=== PATIENT | male | born 2000 | race Two or more races ===

== ENCOUNTER → 2020-07-06 08:32 | Outpatient (BNVA) | payer OTHER, SELFPAY | PROVIDERS: PCP Family Medicine; Referring Provider Family Medicine; Visit Provider Nurse Practitioner Family | DX: Z76.89 Persons encountering health services in other specified circumstances (principal) ==

== ENCOUNTER 2022-07-26 04:31 | Emergency (ER) | payer OTHER, SELFPAY ==
--- NOTE | 2022-07-26 | ECG_ITS ---
Test Reason : CHEST PAIN Blood Pressure : / mmHG Vent. Rate : 077 BPM Atrial Rate : 077 BPM P-R Int : 150 ms QRS Dur : 084 ms QT Int : 358 ms P-R-T Axes : 033 -22 -19 degrees QTc Int : 405 ms Normal sinus rhythm ST elevation, consider early repolarization, pericarditis, or injury Abnormal ECG When compared with ECG of 19-APR-2010 08:53, PREVIOUS ECG IS PRESENT Referred By: Generic ED Physician Electronically Signed By:LEELA DONATO MD
--- NOTE | ~2022-07-26 | XR_ITS ---
EXAMINATION: XR CHEST CLINICAL INFORMATION: Chest pain COMPARISON: 04/14/2019 TECHNIQUE: Frontal view of the chest was obtained. FINDINGS: No significant abnormality is noted involving the heart, lungs, mediastinum, bony thorax or soft tissues. XR/XR chest 1V IMPRESSION: Unremarkable examination.
[2022-07-26 04:38] VITALS: BP 149/105; PULSE 82; RESP 18; TEMP 37.1; O2SAT 98; BMI 48.2
[2022-07-26 05:03] LABS: MANUAL DIFF FLAG NO
[2022-07-26 05:04] LABS: Basophils Percent Auto 0.2 % (0-2); Eosinophils Absolute Auto 0.2 X10*3/uL (0.0-0.4); Eosinophils Percent Auto 2.5 % (0-4); Hematocrit 42.3 % (42.0-52.0); Hemoglobin 13.7 g/dl (14.0-18.0); Imm Gran Abs Auto 0.04 X10*3/uL (0.00-0.03); Imm Gran Pct Auto 0.4 % (0.0-0.4); Lymphocytes Absolute Auto 2.3 X10*3/uL (1.2-4.9); Lymphocytes Percent Auto 23.7 % (20-40); Mean Corpuscular HGB Conc 32.4 g/dl (31.0-36.0); Mean Corpuscular Hemoglobin 26.8 pg (27.0-33.0); Mean Corpuscular Volume 82.6 fL (80.0-98.0); Mean Platelet Volume 9.4 fL (9.4-12.4); Monocytes Absolute Auto 1.7 X10*3/uL (0.1-1.2); Monocytes Percent Auto 17.3 % (2-11); Neutrophils Absolute Auto 5.5 x10*3/uL (2.0-8.3); Neutrophils Percent Auto 55.9 % (45-73); Platelet Count 266 X10*3/uL (160-400); Red Blood Count 5.12 X10*6/uL (4.60-5.80); Red Cell Distribution Width 13.1 % (11.0-16.0); SCAN SMEAR FLAG 1; White Blood Count 9.8 X10*3/uL (4.8-10.8)
[2022-07-26 05:23] LABS: Alanine Aminotransferase 39 U/L (0-40); Albumin Level 3.7 g/dL (3.5-5.0); Alkaline Phosphatase 99 U/L (39-117); Anion Gap 12 (12-20); Aspartate Amino Transferase 42 U/L (5-37); Bilirubin Total 0.7 mg/dL (0.0-1.0); Blood Urea Nitrogen 9 mg/dL (9-16); Calcium 8.4 mg/dL (8.4-10.2); Carbon Dioxide 28 mmol/L (22-29); Chloride 99 mmol/L (96-108); Estimated Glomerular Filt Rate > 60; Glucose Random 116 mg/dL (60-115); Potassium 3.7 mmol/L (3.3-5.1); Sodium 135 mmol/L (135-145); Total Protein 6.7 g/dL (6.5-8.0)
[2022-07-26 05:34] LABS: Troponin-I High Sensitivity 2524.9 ng/L (<3.5-35.0)
[2022-07-26 05:40] LABS: Influenza A PCR NEGATIVE (Negative); Influenza B PCR NEGATIVE (Negative); Resp Syncy Virus RNA Qual PCR NEGATIVE (Negative); SARS COV2 PCR INHOUSE NEGATIVE (Negative)
--- NOTE | 2022-07-26 05:48 | MHC.EDTECH ---
pt placed on shelter monitor.
[2022-07-26 05:49] VITALS: BP 142/100; PULSE 82; RESP 14; O2SAT 97
[2022-07-26 06:13] LABS: INTERNATIONAL NORM RATIO 1.1 (0.9-1.1); Prothrombin Time 12.8 SEC (10.0-13.1)
--- NOTE | 2022-07-26 06:13 | ED.CHESTPAIN ---
HPI - Chest Pain General Chief Complaint: Chest Pain Stated Complaint: chest pain, SOB Time Seen by Provider: 07/26/22 05:47 Source: patient and family ( Mother) Limitations: no limitations History of Present Illness HPI narrative: 22-year-old male brought in for evaluation of chest pain. Patient started to have chest pain 24 hours ago woke him up from sleep yesterday morning, patient was seen at walk-in clinic yesterday, mid chest pain constant since yesterday no relieving factor get worse if he leaned forward, not affected by breathing, no radiation of the pain, slight shortness of breath but no coughing, patient had some viral symptoms for about half a day then now he feels better. No family history of heart disease in young age, no history of young in the family. No recent travel, no recent prolonged immobilization, no lower extremity swelling or tenderness. Related Data Previous Rx's Medication Instructions Recorded citalopram 10 mg tablet 10 mg PO QAM 30 days #30 tabs 06/05/22 doxepin 25 mg capsule 25 mg PO BEDTIME 30 days #30 caps 06/05/22 ciprofloxacin HCl 250 mg tablet 250 mg PO BID #10 tabs 07/25/22 (Cipro) Allergies Allergy/AdvReac Type Severity Reaction Status Date / Time No Known Allergies Allergy Verified 07/25/22 11:58 Review of Systems Review of Systems: All other systems are reviewed and are negative Constitutional: Reports as per HPI and Reports no additional constitutional complaints Eyes: Reports as per HPI and Reports no additional eye complaints Reports system reviewed and no additional complaints, except as documented Cardiovascular: Reports as per HPI and Reports no additional cardiovascular complaints Respiratory: Reports as per HPI and Reports no additional respiratory complaints Gastrointestinal: Reports as per HPI and Reports no additional gastrointestinal complaints Genitourinary: Reports no additional female genitourinary complaints Musculoskeletal: Reports no additional musculoskeletal complaints Skin/Breast: Reports system reviewed and no additional complaints, except as docu Psychiatric: Reports no additional psychiatric complaints Endocrine: Reports no additional endocrine complaints Hematologic/Lymphatic: Reports no additional hematologic/lymphatic complaints Allergic/Immunologic: Reports no additional allergic/immunologic complaints Reports system reviewed and no additional complaints, except as documented and Reports Abnormal speech present PMFSH Past Medical History Medical History Anxiety Attention deficit hyperactivity disorder (ADHD) Excessive cerumen in both ear canals Morbid obesity with BMI of 45.0-49.9, adult Surgical History No pertinent past surgical history Family History Family History Father Diabetes mellitus Mother Diabetes mellitus Other Mental health disorder Social History Social History Housing: House Alcohol intake: never Patient Tobacco Use Status: Never used Tobacco e-Cigarette/Vaping Use: Never Used Second Hand Smoke Exposure: No Advance Directives: No Advance Directives Information Provided: Yes service: No Current occupational status: disabled Cognitive needs: No Hearing needs: No Vision needs: Yes (glasses) Physical Exam Vital Signs: Vital Signs: Last Vital Signs Temp 98.7 F 07/26/22 04:38 Pulse 82 07/26/22 05:49 Resp 14 07/26/22 05:49 BP 142/100 H 07/26/22 05:49 Pulse Ox 97 07/26/22 05:49 O2 Del Method 07/26/22 05:49 BMI result Body Mass Index 48.2 vital signs have been reviewed as appeared to be correct. Blood pressure normal. Heart rate normal. Respiration rate normal. Temperature normal. Oxygen saturation normal. Appearance: Alert. Oriented X3. No acute distress. Head: Normal external exam. Normocephalic. Atraumatic. No Sandoval signs noted. No raccoon eyes noted Eyes: PERRLA. EOMI. Conjunctiva and sclera normal. Eyelids normal. ENT: TM's Normal. Pharynx normal. Uvula midline. Moist mucous membranes. No trismus noted. No drooling noted. No muffled voice noted. Neck: Normal inspection. Neck supple. FROM. No adenopathy. Thyroid Normal. No meningeal signs. No neck mass noted. CVS: Normal heart rate and rhythm. Heart sound normal. No murmurs noted. Pulses normal throughout. Respiratory: No respiratory distress. Painless inspiration. Breath sounds normal. No wheezes/rales/rhonchi noted. Chest nontender. No accessory muscle usage noted or decreased air movement noted. Abdomen: Soft and nontender. Bowel sounds normal in all 4 quadrants. No distention noted. No organomegaly noted. No visible injury noted. Back: No CVA tenderness. Full range of motion noted. Skin: Skin warm and dry. Normal skin color. Normal skin turgor. No rashes/lesions/lacerations noted. Extremities: No lower extremity edema. Extremities exhibit normal range of motion. Extremities nontender. Neuro: Oriented X 3. Cranial nerve exam: II-XII are grossly intact No motor deficit. No sensory deficit. Reflexes normal. Course Course Course Narrative: 24 hour constant chest pain, EKG/labs /history is more consistent with myopericarditis. The case discussed with Dr. Ryan who recommended transfer to [facility], anti inflammatory medication, pain control. The case was discussed with Dr. Avalos at [facility] who will accept the patient to [facility] for further workup. Medical Decision Making Differential Diagnosis Differential Diagnoses: The differential diagnosis associated with the presentation includes ( Acute [place], myopericarditis, pneumonia, pneumothorax, pleural effusion.) Consult Healthcare Provider Management of the patient was discussed with: Flame Planer ( Dr. Ryan delinquency prevention officer. And Dr. Avalos delinquency prevention officer at [facility].) Lab Data MDM Lab Attestation statement: I reviewed the patient's lab results. Result Diagrams: 07/26/22 04:59 07/26/22 04:59 Labs: Lab Results 07/26/22 07/26/22 07/26/22 Range/Units 04:59 04:59 04:59 WBC 9.8 (4.8-10.8) X10*3/uL RBC 5.12 (4.60-5.80) X10*6/uL Hgb 13.7 L (14.0-18.0) g/dl Hct 42.3 (42.0-52.0) % MCV 82.6 (80.0-98.0) fL MCH 26.8 L (27.0-33.0) pg MCHC 32.4 (31.0-36.0) g/dl RDW 13.1 (11.0-16.0) % Plt Count 266 (160-400) X10*3/uL MPV 9.4 (9.4-12.4) fL Immature Gran % (Auto) 0.4 (0.0-0.4) % Neut % (Auto) 55.9 (45-73) % Lymph % (Auto) 23.7 (20-40) % Harris % (Auto) 17.3 H (2-11) % Eos % (Auto) 2.5 (0-4) % Baso % (Auto) 0.2 (0-2) % Lymph # (Auto) 2.3 (1.2-4.9) X10*3/uL Harris # (Auto) 1.7 H (0.1-1.2) X10*3/uL Eos # (Auto) 0.2 (0.0-0.4) X10*3/uL Baso # (Auto) 0.0 (0.0-0.2) X10*3/uL Abs Immat Gran (auto) 0.04 H (0.00-0.03) X10*3/uL Absolute Neuts (auto) 5.5 (2.0-8.3) x10*3/uL Absolute Nucleated RBC 0.000 (0.0-0.012) X10*3/uL Nucleated RBC % (auto) 0.0 (0.0-0.2) /100WBC PT (10.0-13.1) SEC INR (0.9-1.1) APTT (26.0-36.4) SEC D-Dimer High Sensitivty NG/ML Sodium 135 (135-145) mmol/L Potassium 3.7 (3.3-5.1) mmol/L Chloride 99 (96-108) mmol/L Carbon Dioxide 28 (22-29) mmol/L Anion Gap 12 (12-20) BUN 9 (9-16) mg/dL Creatinine 0.90 (0.5-1.4) mg/dL Estim Creat Clear Calc 185.0 Estimated GFR > 60 Random Glucose 116 H (60-115) mg/dL Calcium 8.4 (8.4-10.2) mg/dL Total Bilirubin 0.7 (0.0-1.0) mg/dL AST 42 H (5-37) U/L ALT 39 (0-40) U/L Alkaline Phosphatase 99 (39-117) U/L Troponin I High Sens 2524.9 H* (<3.5-35.0) ng/L Total Protein 6.7 (6.5-8.0) g/dL Albumin 3.7 (3.5-5.0) g/dL Influenza Type A (PCR) (Negative) Influenza Type B (PCR) (Negative) RSV RNA Qual (PCR) (Negative) SARS-CoV-2 RNA (RT-PCR) (Negative) 07/26/22 07/26/22 07/26/22 Range/Units 04:59 05:57 05:57 WBC (4.8-10.8) X10*3/uL RBC (4.60-5.80) X10*6/uL Hgb (14.0-18.0) g/dl Hct (42.0-52.0) % MCV (80.0-98.0) fL MCH (27.0-33.0) pg MCHC (31.0-36.0) g/dl RDW (11.0-16.0) % Plt Count (160-400) X10*3/uL MPV (9.4-12.4) fL Immature Gran % (Auto) (0.0-0.4) % Neut % (Auto) (45-73) % Lymph % (Auto) (20-40) % Harris % (Auto) (2-11) % Eos % (Auto) (0-4) % Baso % (Auto) (0-2) % Lymph # (Auto) (1.2-4.9) X10*3/uL Harris # (Auto) (0.1-1.2) X10*3/uL Eos # (Auto) (0.0-0.4) X10*3/uL Baso # (Auto) (0.0-0.2) X10*3/uL Abs Immat Gran (auto) (0.00-0.03) X10*3/uL Absolute Neuts (auto) (2.0-8.3) x10*3/uL Absolute Nucleated RBC (0.0-0.012) X10*3/uL Nucleated RBC % (auto) (0.0-0.2) /100WBC PT 12.8 (10.0-13.1) SEC INR 1.1 (0.9-1.1) APTT 33.2 (26.0-36.4) SEC D-Dimer High Sensitivty 263 NG/ML Sodium (135-145) mmol/L Potassium (3.3-5.1) mmol/L Chloride (96-108) mmol/L Carbon Dioxide (22-29) mmol/L Anion Gap (12-20) BUN (9-16) mg/dL Creatinine (0.5-1.4) mg/dL Estim Creat Clear Calc Estimated GFR Random Glucose (60-115) mg/dL Calcium (8.4-10.2) mg/dL Total Bilirubin (0.0-1.0) mg/dL AST (5-37) U/L ALT (0-40) U/L Alkaline Phosphatase (39-117) U/L Troponin I High Sens > 3600.0 H* (<3.5-35.0) ng/L Total Protein (6.5-8.0) g/dL Albumin (3.5-5.0) g/dL Influenza Type A (PCR) NEGATIVE (Negative) Influenza Type B (PCR) NEGATIVE (Negative) RSV RNA Qual (PCR) NEGATIVE (Negative) SARS-CoV-2 RNA (RT-PCR) NEGATIVE (Negative) Independent Interpretation I performed an independent interpretation of an: EKG ( Normal sinus rhythm at 77 beats per minute, left axis deviation, normal intervals, diffuse ST elevation likely pericarditis.) and Plain X-Ray ( No acute intrathoracic pathology.) Radiology Impression Discussion of test interpretation with radiology: I have reviewed the radiologist's reading. Critical Care Time Critical Care Time Critical Care Time: Yes Total Critical Care Time: 60 Attestation: I spent 60 minutes providing critical care service to the patient, this including time spent at the bedside to evaluate the patient, reassess the patient, monitoring vital signs, review labs, and radiographic studies, counseling the patient/family, discussing the case with consultants, disposition the patient. Discharge Plan Discharge Clinical Impression: Acute myopericarditis Patient Disposition: [facility] Transfer Details: to cardiac telemetry floor. Prescriptions: No Action citalopram 10 mg tablet 10 mg PO QAM 30 Days Qty: 30 3RF doxepin 25 mg capsule 25 mg PO BEDTIME 30 Days Qty: 30 3RF ciprofloxacin HCl [Cipro] 250 mg tablet 250 mg PO BID Qty: 10 0RF
--- NOTE | 2022-07-26 06:14 | MHC.EDTECH ---
call out to english professor @[phone] not accepted to [facility] call out to [facility] transfer line @[phone]
[2022-07-26 06:15] LABS: D Dimer High Sensitivity 263 NG/ML; Partial Thromboplastin Time 33.2 SEC (26.0-36.4)
[2022-07-26 06:25] LABS: Troponin-I High Sensitivity > 3600.0 ng/L (<3.5-35.0)
--- NOTE | 2022-07-26 06:41 | MHC.EDTECH ---
Call received from Judy from [facility] Transfer line @[phone] with an update Patient will be admitted to the intercare medical floor Accepting [facility] will call back when a bed is available
[2022-07-26 06:53] VITALS: RESP 12
[2022-07-26] MEDS: Ibuprofen 800 MG TABLET PO (06:53)
[2022-07-26] MEDS: Morphine Sulfate 4 MG/ML CARTRIDGE IVPUSH (06:53)
[2022-07-26 07:27] VITALS: BP 130/89; PULSE 73; RESP 13; TEMP 36.8; O2SAT 99
--- NOTE | 2022-07-26 08:01 | MHC.EDTECH ---
@[phone] called [facility] transfer line to check on the status of the room search. Kim answers and notifies me that he got a room in [facility] 5. Cardiac Intracare room 7.
--- NOTE | 2022-07-26 08:08 | MHC.EDTECH ---
@0807 called [facility]. Told them we need an ambulance to transfer Rm 8 to [facility] [place] 5 cardiac intracare room 7. Gave name, , reason for transfer and insurance information. They said their ALS truck could be here within the hour.
--- NOTE | 2022-07-26 08:17 | PC.NURSE ---
pt denies any pain, awaiting transfer to [facility]
--- NOTE | 2022-07-26 08:58 | PC.NURSE ---
call placed to brendan telles on [facility] asked to call [phone] in 5 min
== END 2022-07-26 08:56 | disposition short-term general hospital (02) ==
PROVIDERS: Emergency Provider Emergency Medicine; PCP Internal Medicine
DX: I31.9 Disease of pericardium, unspecified (principal); R07.89 Other chest pain; R06.02 Shortness of breath; Z20.822 Contact with and (suspected) exposure to COVID-19; Z79.899 Other long term (current) drug therapy
CPT/HCPCS: 0241U; 36415; 71045; 80053; 84484; 85025; 85379; 85610; 85730; 93005; 96374; 99285; J2270

== ENCOUNTER 2023-05-17 15:01 | Outpatient (AMB) | payer OTHER, SELFPAY ==
[2023-05-17 15:03] VITALS: BP 130/82; PULSE 97; O2SAT 96; BMI 45.9
--- NOTE | 2023-05-17 15:03 | A.OFFPC_ITS ---
Vital Signs 3 05/17/23 15:03 Height 5 ft 9 in Weight 311 lb 0.6 oz BMI 45.9 BP 130/82 Blood Pressure Location Lt brachial Position Sitting Pulse 97 Pulse Source Pulse Oximeter Temp Source Skin Pulse Oximetry (%) 96 Oxygen Delivery Method Room Air Intake Visit Reasons: Physical Intake Note: Patient is here today for a physical. Propeller Engineer Required: No Allergies No Known Allergies Allergy (Verified 05/17/23 15:15) Medication List - Last Reconciled 05/17/23 by PARAMJIT Serra No Known Home Meds Tobacco use date assessed: 05/17/23 Dental Screening Dental Screen Date: 05/17/23 Did you have a dental visit in the last 12 months?: No Did you have a dental problem in the last 6 months where you did not have access to dental care?: No HPI Physical 2 HPI0 Details Patient is a 22-year-old male who presents today for physical exam. Patient of Dr. Thompson. Medical history significant for ADHD-he has referral to see Psychiatry-will follow-up on this, anxiety, depression, morbid obesity, insomnia, history of myocarditis - was seen by [facility] cardiology-will call for a follow-up appointment. Patient reports that he finished his doxepin and citalopram and he never called for refills, now he is requesting refills. Reports eye exam up-to-date. Will call for dental exam. He declined tetanus vaccine. In addition, patient reports right neck lumps on and off for the past 1 year now, reports current lumps came out about 4 days that are tender, reports this issue for the past 1 year. No shortness of breath or chest pain. [facility] Medical History (Updated 05/17/23 @ 17:30 by PARAMJIT Serra) Gastroenteritis Myocarditis Excessive cerumen in both ear canals Morbid obesity with BMI of 45.0-49.9, adult Anxiety Attention deficit hyperactivity disorder (ADHD) Surgical History No pertinent past surgical history Family History Father Diabetes mellitus Mother Diabetes mellitus Other Mental health disorder Social History Housing: House Alcohol intake: never Patient Tobacco Use Status: Never used Tobacco e-Cigarette/Vaping Use: Never Used Second Hand Smoke Exposure: No service: No Current occupational status: disabled Cognitive needs: No Hearing needs: No Vision needs: Yes (glasses) Questionnaire PHQ-9 Over the last 2 weeks, how often have you been bothered by any of the following problems? 1. Little interest or pleasure in doing things: not at all 2. Feeling down, depressed, or hopeless: several days 3. Trouble falling or staying asleep, or sleeping too much: not at all 4. Feeling tired or having little energy: not at all 5. Poor appetite or overeating: not at all 6. Feeling bad about yourself - or that you are a failure or have let yourself or your family down: not at all 7. Trouble concentrating on things, such as reading the newspaper or watching television: not at all 8. Moving or speaking so slowly that other people could have noticed. Or the opposite - being so fidgety or restless that you have been moving around a lot more than usual: not at all 9. Thoughts that you would be better off or of hurting yourself in some way: not at all Total score: 1 Depression Screening Interpretation: Positive (controlled on Rx) Depression Screening Done: Yes 62128 - PHQ-9 Billing: Yes Source: Developed by Drs. Pj Mesa, Bertha Robin, Joselo Galindo and colleagues, with an educational morteza from [employer]. Thrive Questionnaire Date Thrive assessed: 08/15/22 I am a: Patient What is your living situation today?: I have a steady place to live Within the past 12 months, did the food you bought not last and you didn't have the money to get more?: Never true Within the past 12 months, did you worry whether your food would run out before you got money to buy more?: Never true Currently or been in a relationship where the following occur: no concerns reported AUDIT C Alcohol Use Questionnaire (AUDIT-C) 1. How often do you have a drink containing alcohol?: Never 3. How often do you have six or more drinks on one occasion?: Never Total Score: 0 Score Reviewed/Action Taken: No BLAYNE-7 AMB Questionnaire BLAYNE-7 Date BLAYNE - 7 assessed: 05/17/23 Feeling nervous, anxious, or on edge: 3 = Nearly every day Not being able to stop or control worryin = Nearly every day Worrying too much about different things: 3 = Nearly every day Trouble relaxin = Several days Being so restless that it is hard to sit still: 3 = Nearly every day Becoming easily annoyed or irritable: 1 = Several days Feeling afraid as if something awful might happen: 0 = Not at all Total BLAYNE-7 score (0-4 normal; 5-9 mild; 10-14 moderate; 15-21 severe): 14 Source: Developed by Drs. Pj Mesa, Bertha Robin, Joselo Galindo and colleagues, with an educational morteza from [employer]. BLAYNE-7 Assessment Billing BLAYNE-7 Assessment Tool: BLAYNE-7 Assessment 47481 Review of Systems Const Denies body aches, Denies chills, Denies fever(s) and Denies headache(s) Eyes Denies change in vision ENT Denies dizziness, Denies otalgia, Denies headache(s), Denies nasal discharge, Denies sinus pain and Denies sore throat Card Denies chest pain, Denies edema, Denies lightheadedness and Denies dyspnea Resp Denies cough, Denies dyspnea and Denies wheezing GI Denies abdominal pain, Denies constipation, Denies diarrhea, Denies nausea and Denies vomiting Denies dysuria Musc Denies myalgias Skin/Breast Reports as per HPI and Denies rash Neuro Denies dizziness and Denies headache(s) Aller/Immun Denies wheezing Physical exam (Primary Care) Vital Signs: Last Vital Signs Pulse 97 05/17/23 15:03 BP 130/82 05/17/23 15:03 Pulse Ox 96 05/17/23 15:03 Oxygen Delivery Method Room Air 05/17/23 15:03 BMI result Body Mass Index 45.9 Tobacco/Smoking Status: Tobacco use Status Tobacco use date assessed 05/17/23 05/17/23 15:04 Patient Tobacco Use Status Never used Tobacco 05/17/23 15:04 e-Cigarette/Vaping Use Never Used 05/17/23 15:04 PHQ-9: PHQ-9 Score PHQ-9: Total score 1 05/17/23 15:09 Depression Screening Interpretation: Positive (controlled on Rx) Thrive Assessment: Date of Thrive Assessment Date Thrive assessed 08/15/22 05/17/23 15:04 Currently or been in a relationship where the following occur: no concerns reported Const General: cooperative and no acute distress Orientation/consciousness: patient oriented x3 HENMT Head: Yes normocephalic and Yes atraumatic Ears: TM's normal bilaterally Face and sinus: Yes sinuses nontender Mouth: oropharynx normal and moist mucous membranes Throat: Yes posterior oropharynx normal Eyes General: appearance normal, both eyes and all related structures Pupils: Equal, round and reactive pupils present EOM: EOMs intact bilaterally Neck Neck: Yes normal visual inspection, Yes full ROM and Yes no lymphadenopathy Thyroid: Thyroid normal Resp Effort & Inspection: normal respiratory effort and able to speak in complete sentences Auscultation: clear to auscultation bilaterally, no crackles, no rales, no rhonchi and no wheezes Cardio Rate: regular rate Rhythm: regular rhythm Heart sounds: S1 normal heart sound present, S2 normal heart sound present and no murmurs GI Palpation (GI): Soft to palpation, not firm, nontender, no guarding, not rigid and no hepatosplenomegaly Auscultation: normal bowel sounds General: No CVA tenderness Back/Spine/Pelvis Back: No CVA tenderness Skin General skin exam: no rashes or lesions noted Full body images: 2 1. Right lateral neck 2 tender lumps about 1 cm each, skin is intact, no signs of infection noted Neuro General: patient oriented x3 Cranial nerves: Yes Equal, round and reactive pupils present Gait exam (Neuro): Normal gait present Extrem General: Yes full ROM and No edema Office Procedures Flu Questionnaire Does the patient have a severe egg allergy?: No Does the patient have severe life threatening allergies?: No Does the patient have a fever or illness today?: No Has the patient ever had Guillain-Pinetop Syndrome?: No Has the patient ever had any past reaction to a flu shot?: No Immunizations flu vacc [id number] 6mos up(PF) 60 mcg(15 mcgx4)/0.5 mL IM syringe Performing Provider: PARAMJIT Serra Performing Location: [facility] Adult Primary [facility] Administered by: FILIPE Montoya on 05/17/23 15:17 2 Dose Route Admin Location Dispensed Lot Number Expiration Date NDC Java Flex Developer 0.5 mL IM Left Deltoid 0.5 mL [id number] 01/27/24 33815-313-55 [employer] 2 VIS Given Date VIS Provided VIS Publication Date 05/17/23 Single Vaccine 21 Eligibility Eligibility Date Funding Source Not [facility] Eligible 05/17/23 Private Assessment and Plan Assessment & Plan (1) Skin lumps: Code(s): R22.9 - Localized swelling, mass and lump, unspecified Plan: Right lateral neck 2 tender lumps about 1 cm each, skin is intact, no signs of infection noted Will obtain ultrasound (2) Myocarditis: Code(s): I51.4 - Myocarditis, unspecified Qualifiers: Myocarditis type: infective Infective myocarditis organism: viral C hronicity: acute Qualified Code(s): I40.0 - Infective myocarditis Plan: Patient was seen by [facility] cardiology, last time he saw Cardiology in winter 2022, he reports that cardiology did not give him follow-up appointment, encouraged patient to call cardiology for a follow-up appointment (3) Insomnia: Code(s): G47.00 - Insomnia, unspecified Qualifiers: Insomnia type: unspecified Qualified Code(s): G47.00 - Insomnia, unspecified Plan: Reinforced sleep hygiene Refill sent on doxepin 25 mg at bedtime (4) Depression: Code(s): F32.A - Depression, unspecified Qualifiers: Depression Type: other depression Qualified Code(s): F32.89 - Other specified depressive episodes Plan: Counseling referral Refill sent on citalopram Denies SI (5) Morbid obesity with BMI of 45.0-49.9, adult: Code(s): E66.01 - Morbid (severe) obesity due to excess calories; Z68.42 - Body mass index [BMI] 45.0-49.9, adult Plan: Educated about healthy food choices and exercise as tolerated (6) Anxiety: Code(s): F41.9 - Anxiety disorder, unspecified Plan: Same as above (7) Attention deficit hyperactivity disorder (ADHD): Code(s): F90.9 - Attention-deficit hyperactivity disorder, unspecified type Qualifiers: Attention deficit-hyperactivity disorder type: unspecified Qualified Code(s): F90.9 - Attention-deficit hyperactivity disorder, unspecified type Plan: Will follow-up on psychiatry referral (8) Adult general medical exam: Code(s): Z00.00 - Encounter for general adult medical examination without abnormal findings Plan: Declined tetanus vaccine Orders: Orders 2 Influenza [id number] Immunization Today Z23 - Encounter for immunization US soft tiss head and/or neck Today R22.9 - Localized swelling, mass and lump, unspecified Referrals 2 Counseling Referral F32.A - Depression, unspecified, F41.9 - Anxiety disorder, unspecified, F90.9 - Attention-deficit hyperactivity disorder, unspecified type Medications: Refilled 2 citalopram 10 mg PO QAM 30 days 30 tabs 3RF F41.9 - Anxiety disorder, unspecified doxepin 25 mg PO BEDTIME 30 days 30 caps 3RF G47.00 - Insomnia, unspecified Coding Level of Care Code Est Pt Prev Care [id number]) Diagnoses Skin lumps R22.9 Acute viral myocarditis I40.0 Myocarditis type: infective Infective myocarditis organism: viral Chronicity: acute Insomnia, unspecified type G47.00 Insomnia type: unspecified Other depression F32.89 Depression Type: other depression Morbid obesity with BMI of 45.0-49.9, adult E66.01; Z68.42 Anxiety F41.9 Attention deficit hyperactivity disorder (ADHD), unspecified ADHD type F90.9 Attention deficit-hyperactivity disorder type: unspecified Adult general medical exam Z00.00 Additional Codes BLANYE-7 Assessment Billing - BLAYNE-7 Assessment Tool: BLAYNE-7 Assessment [id number] ([id number])
== END 2023-05-17 15:31 | disposition home or self-care (01) ==
PROVIDERS: PCP Internal Medicine; Visit Provider Nurse Practitioner Family
DX: Z00.00 Encounter for general adult medical examination without abnormal findings (principal); E66.01 Morbid (severe) obesity due to excess calories; Z68.42 Body mass index [BMI] 45.0-49.9, adult; G47.00 Insomnia, unspecified; R22.9 Localized swelling, mass and lump, unspecified; Z23 Encounter for immunization; I40.0 Infective myocarditis; F32.89 Other specified depressive episodes; F41.9 Anxiety disorder, unspecified; F90.9 Attention-deficit hyperactivity disorder, unspecified type
CPT/HCPCS: 90471; 90686; 96127; 99395

== ENCOUNTER 2023-05-23 14:17 | Outpatient (REF) | payer OTHER, SELFPAY ==
--- NOTE | ~2023-05-23 | US_ITS ---
EXAMINATION: US SOFT TISSUE HEAD/NECK CLINICAL INFORMATION: Localized swelling, mass and lump, unspecified. Right neck skin lumps x2. COMPARISON: None available. TECHNIQUE: Linear transducer alcnatar-scale and color Doppler examination of the posterior right neck with left side for comparison. FINDINGS: Within the posterior right paracentral cervical region, corresponding with the palpable abnormality, there are 7 x 6 x 6 mm and 7 x 4 x 6 mm hypoechoic collections. These show no associated color Doppler flow. No draining sinus tract is noted. The adjacent cutaneous, subcutaneous, muscular and fascial planes are unremarkable. US/US soft tiss head and/or neck IMPRESSION: 2 hypoechoic subdermal collections are seen in the posterior right cervical region. These could represent epidermal inclusion cysts or necrotic lymph nodes. The exact etiologies are indeterminate. Recommend management on a clinical basis. If of continued clinical concern, this can be further evaluated with a CT examination soft tissues of the neck.
== END 2023-05-23 14:18 | disposition home or self-care (01) ==
LOC: HO.HMGCX 14:17
PROVIDERS: PCP Internal Medicine; Visit Provider Nurse Practitioner Family
DX: R22.9 Localized swelling, mass and lump, unspecified (principal)
CPT/HCPCS: 76536

== ENCOUNTER 2023-06-13 14:09 | Outpatient (AMB) | payer OTHER, SELFPAY ==
--- NOTE | 2023-06-13 14:09 | A.OFFVIS_ITS ---
Intake Vital Signs 06/13/23 14:10 Height 5 ft 9 in Weight 312 lb 9.848 oz BMI 46.2 BP 128/74 Blood Pressure Location Lt brachial Position Sitting Pulse 90 Pulse Source Pulse Oximeter Pulse Oximetry (%) 98 Oxygen Delivery Method Room Air Intake Visit Reasons: lump on neck Intake Note: Pt presents to the office today for a lump on the back of his neck. Pt states he noticed it about 3 days before his ultrasound on 05/23/23. Pt states he doesn't feel the bump anymore. Pt states he no longer has any pain and denies any discharge from the lump. Pt states the lump comes and goes. Allergies No Known Allergies Allergy (Verified 06/13/23 14:18) Medication List - Last Reconciled 06/13/23 by Berry Chu MD citalopram 10 mg PO QAM 30 days doxepin 25 mg PO BEDTIME 30 days No Known Home Meds HPI lump on neck HPI Details 22-year-old male referred for a lump on the neck. He says that he noticed this about 3 weeks ago. This was tender and painful at that time. He was sent by primary care provider and he was arranged to have an ultrasound which shows 2 small collections, 7 mm each in widest dimension on the posterior neck area. This appeared to be cysts. However, he says that the lumps resolved on their own. He did not notice any drainage. He says that currently he does not feel this lumps anymore He does state that he has had this similar lumps on the back of his neck and on the occipital scalp area in the past. [facility] Medical History (Updated 06/13/23 @ 14:31 by Berry Chu MD) Folliculitis Gastroenteritis Myocarditis Excessive cerumen in both ear canals Morbid obesity with BMI of 45.0-49.9, adult Anxiety Attention deficit hyperactivity disorder (ADHD) Surgical History No pertinent past surgical history Family History Father Diabetes mellitus Mother Diabetes mellitus Other Mental health disorder Social History Housing: House Alcohol intake: never Patient Tobacco Use Status: Never used Tobacco e-Cigarette/Vaping Use: Never Used Second Hand Smoke Exposure: No service: No Current occupational status: disabled Cognitive needs: No Hearing needs: No Vision needs: Yes (glasses) Review of Systems Const Denies chills and Denies fever(s) Card Denies chest pain, Denies dyspnea and Denies dyspnea on exertion Resp Denies cough, Denies dyspnea and Denies dyspnea on exertion GI Denies hematochezia and Denies change in bowel habits Denies hematuria and Denies difficulty urinating Musc Denies back pain and Denies limited range of motion Neuro Denies focal weakness and Denies convulsions Psych Denies depression and Denies mood swings Physical Exam Vital Signs: Last Vital Signs Pulse 90 06/13/23 14:10 BP 128/74 06/13/23 14:10 Pulse Ox 98 06/13/23 14:10 Oxygen Delivery Method Room Air 06/13/23 14:10 BMI result Body Mass Index 46.2 Const Other: Morbidly obese General: comfortable and no acute distress Orientation/consciousness: patient oriented x3 Neck Other: no palpable masses on the posterior neck where he has points to as were the lumps where previously. However, there was note of stigmata of previous inflammation that may be consistent with colitis versus hidradenitis. This is also seen on the occipital area. Neck: Yes no lymphadenopathy Resp Auscultation: clear to auscultation bilaterally Cardio Rhythm: regular rhythm GI Palpation (GI): Soft to palpation, nontender and no guarding Neuro General: patient oriented x3 Assessment & Plan Assessment & Plan (1) Folliculitis: Code(s): L73.9 - Follicular disorder, unspecified Plan: He had felt a small lump on the posterior neck 3 weeks ago. This lasted for a few days. Has since resolved. He denies any drainage. This was likely folliculitis of the area. There is note of some in changes suggested of this with some scattering as well as stigmata of previous hidradenitis in the area as well as on the scalp I told him that currently we do not need to do any I&D or excision. However, he understands that he may have recurrence of similar lumps in the future. If these do get severe infections, he may require I&D. He understands and is comfortable with the above discussion. Coding Level of Care Code New Pt Level 3 (23937) Diagnoses Folliculitis L73.9
[2023-06-13 14:10] VITALS: BP 128/74; PULSE 90; O2SAT 98; BMI 46.2
== END 2023-06-13 15:04 | disposition home or self-care (01) ==
PROVIDERS: PCP Internal Medicine; Referring Provider Nurse Practitioner Family; Visit Provider Surgery
DX: L73.9 Follicular disorder, unspecified (principal)
CPT/HCPCS: 99203

== ENCOUNTER → 2023-06-13 14:09 | Outpatient (BNVA) | payer OTHER, SELFPAY | PROVIDERS: PCP Internal Medicine; Referring Provider Nurse Practitioner Family; Visit Provider Surgery | DX: L73.9 Follicular disorder, unspecified (principal) | CPT/HCPCS: 99202 ==

== ENCOUNTER 2024-04-30 15:19 | Outpatient (AMB) | payer OTHER, SELFPAY ==
[2024-04-30 15:36] VITALS: BP 124/80; PULSE 75; O2SAT 97; BMI 46.1
--- NOTE | 2024-04-30 15:36 | A.OFFPC_ITS ---
Vital Signs 04/30/24 15:36 Height 5 ft 9 in Weight 312 lb 8 oz BMI 46.1 BP 124/80 Blood Pressure Location Lt brachial Position Sitting Pulse 75 Pulse Source Pulse Oximeter Pulse Oximetry (%) 97 Oxygen Delivery Method Room Air Intake [facility] Required: No Accompanied by: Self / Same As Patient Allergies No Known Allergies Allergy (Verified 04/30/24 15:56) Medication List - Last Reconciled 04/30/24 by Rah Thompson MD No Known Home Meds Tobacco use date assessed: 04/30/24 Dental Screening Dental Screen Date: 04/30/24 Did you have a dental visit in the last 12 months?: No Did you have a dental problem in the last 6 months where you did not have access to dental care?: No Was dental information given to patient?: Patient has dentist [facility] HPI Details Patient comes in today for his follow up visit - was last seen by me in July 2022 States that he has been experiencing increasing anxiety again over the past few months He used to take Doxepin and Citalopram but states that he stopped taking both of his meds sometime late last year when his Rx ran out - states that he did not think to call for refills on his Rx at the time He also recalls being diagnosed with ADHD when he was younger and that he was on some Rx for his ADHD when he was still in school but has not been prescribed any ADHD meds lately He was also referred to psychiatry a few times over the past couple of years but he states that he never received any calls from psychiatry to schedule him for an appointment with them He denies any headaches or dizziness Denies any chest pains, no SOB No nausea/vomiting, no abdominal pain No change in bowel habits noted He would also like to get his flu shot today COUNTS INCLUDE 234 BEDS AT THE [facility] Medical History (Updated 04/30/24 @ 16:01 by Rah Thompson MD) Folliculitis Myocarditis Morbid obesity with BMI of 45.0-49.9, adult Anxiety Attention deficit hyperactivity disorder (ADHD) Surgical History No pertinent past surgical history Family History Father Diabetes mellitus Mother Diabetes mellitus Other Mental health disorder Social History Housing: House Alcohol intake: never Patient Tobacco Use Status: Never used Tobacco e-Cigarette/Vaping Use: Never Used Second Hand Smoke Exposure: No service: No Current occupational status: disabled Cognitive needs: No Hearing needs: No Vision needs: Yes (glasses) Questionnaire PHQ-9 Over the last 2 weeks, how often have you been bothered by any of the following problems? 1. Little interest or pleasure in doing things: not at all 2. Feeling down, depressed, or hopeless: several days 3. Trouble falling or staying asleep, or sleeping too much: not at all 4. Feeling tired or having little energy: not at all 5. Poor appetite or overeating: not at all 6. Feeling bad about yourself - or that you are a failure or have let yourself or your family down: not at all 7. Trouble concentrating on things, such as reading the newspaper or watching television: not at all 8. Moving or speaking so slowly that other people could have noticed. Or the opposite - being so fidgety or restless that you have been moving around a lot more than usual: not at all 9. Thoughts that you would be better off or of hurting yourself in some way: not at all Total score: 1 Depression Screening Interpretation: Positive Depression Screening Follow-up: Existing condition and New Medication prescribed (started back on his previous Rx) Depression Screening Done: Yes 67139 - PHQ-9 Billing: Yes Source: Developed by Drs. Pj Mesa, Bertha Robin, Joselo Galindo and colleagues, with an educational morteza from [employer]. Thrive Questionnaire Date Thrive assessed: 04/30/24 I am a: Patient What is your living situation today?: I have a steady place to live Within the past 12 months, did the food you bought not last and you didn't have the money to get more?: Never true Within the past 12 months, did you worry whether your food would run out before you got money to buy more?: Never true Do you have trouble paying for medicines?: No Do you have trouble getting transportation to medical appointments?: No Do you have trouble paying your heating and electricity bill?: No Do you have trouble taking care of your child, family member or friend?: No Do you have trouble with day-to-day activities such as bathing, preparing meals, shopping, managing finances, etc.?: No Are you currently unemployed and looking for a job?: I choose not to answer this question Are you interested in more education?: No Please select the resources that you would like help with: None Currently or been in a relationship where the following occur: No concerns reported THRIVE Score: 0 AUDIT C Alcohol Use Questionnaire (AUDIT-C) 1. How often do you have a drink containing alcohol?: Never 3. How often do you have six or more drinks on one occasion?: Never Total Score: 0 Score Reviewed/Action Taken: Yes BLAYNE-7 AMB Questionnaire BLAYNE-7 Date BLAYNE - 7 assessed: 04/30/24 Feeling nervous, anxious, or on edge: 3 = Nearly every day Not being able to stop or control worryin = Nearly every day Worrying too much about different things: 3 = Nearly every day Trouble relaxin = Several days Being so restless that it is hard to sit still: 3 = Nearly every day Becoming easily annoyed or irritable: 1 = Several days Feeling afraid as if something awful might happen: 0 = Not at all Total BLAYNE-7 score (0-4 normal; 5-9 mild; 10-14 moderate; 15-21 severe): 14 Source: Developed by Drs. Pj Mesa, Bertha Robin, Joselo Galindo and colleagues, with an educational morteza from [employer]. BLAYNE-7 Assessment Billing BLAYNE-7 Assessment Tool: BLAYNE-7 Assessment 39638 Review of Systems Const Denies chills, Reports difficulty sleeping, Denies fatigue, Denies fever(s) and Denies headache(s) ENT Denies dysphagia, Denies dizziness, Denies otalgia, Denies headache(s), Denies neck pain, Denies odynophagia and Denies sore throat Card Denies chest pain, Denies palpitations and Denies dyspnea Resp Denies cough and Denies dyspnea GI Denies abdominal pain, Denies constipation, Denies dysphagia, Denies heartburn, Denies diarrhea, Denies nausea, Denies odynophagia and Denies vomiting Denies dysuria, Denies nocturia and Denies urinary frequency Musc Denies back pain and Denies neck pain Skin/Breast Denies rash Neuro Denies dizziness and Denies headache(s) Psych Reports anxiety and Denies depression Endo Denies fatigue and Denies palpitations Physical exam (Primary Care) Vital Signs: Last Vital Signs Pulse 75 04/30/24 15:36 BP 124/80 04/30/24 15:36 Pulse Ox 97 04/30/24 15:36 Oxygen Delivery Method Room Air 04/30/24 15:36 BMI result Body Mass Index 46.1 Tobacco/Smoking Status: Tobacco use Status Tobacco use date assessed 04/30/24 04/30/24 15:39 Patient Tobacco Use Status Never used Tobacco 04/30/24 15:39 e-Cigarette/Vaping Use Never Used 04/30/24 15:39 PHQ-9: PHQ-9 Score PHQ-9: Total score 1 04/30/24 16:01 Depression Screening Interpretation: Positive Depression Screening Follow-up: Existing condition and New Medication prescribed (started back on his previous Rx) Thrive Assessment: Date of Thrive Assessment Date Thrive assessed 04/30/24 04/30/24 15:39 Currently or been in a relationship where the following occur: No concerns reported Const General: no acute distress and alert Orientation/consciousness: patient oriented x3 HENMT Throat: Yes posterior oropharynx normal and Yes tonsils normal (no TP congestion) Neck Neck: Yes no lymphadenopathy and Yes supple Thyroid: Thyroid normal Resp Auscultation: clear to auscultation bilaterally, no rales and no wheezes Cardio Rate: regular rate Rhythm: regular rhythm Heart sounds: no murmurs GI Palpation (GI): Soft to palpation and nontender Auscultation: normal bowel sounds General: Yes no CVA tenderness Back/Spine/Pelvis Back: no CVA tenderness Thoracic/Lumbar Spine: thoracic and lumbar spine normal to inspection Skin Rashes: no rashes Neuro General: patient oriented x3 Extrem General: Yes no clubbing, cyanosis or edema Office Procedures Flu Questionnaire Does the patient have a severe egg allergy?: No Does the patient have severe life threatening allergies?: No Does the patient have a fever or illness today?: No Has the patient ever had Guillain-[place] Syndrome?: No Has the patient ever had any past reaction to a flu shot?: No Immunizations Fluarix Triv [id number] (PF) 45 mcg (15 mcg x 3)/0.5 mL IM syringe Performing Provider: Rah Thompson MD Performing Location[place] [facility] Administered by: FILIPE Montoya on 04/30/24 15:51 Dose Route Admin Location Dispensed Lot Number Expiration Date NDC Donations Attendant 0.5 mL IM Left Deltoid 0.5 mL [id number] 01/26/25 [id number] [email or web address] VIS Given Date VIS Provided VIS Publication Date 04/30/24 Single Vaccine 21 Eligibility Eligibility Date Funding Source Not [facility] Eligible 04/30/24 Private Coding Level of Care Code Est Pt Level 4 (89564) Diagnoses Insomnia, unspecified type G47.00 Insomnia type: unspecified Attention deficit hyperactivity disorder (ADHD), unspecified ADHD type F90.9 Attention deficit-hyperactivity disorder type: unspecified Anxiety F41.9 Morbid obesity with BMI of 45.0-49.9, adult E66.01; Z68.42 Additional Codes BLAYNE-7 Assessment Billing - BLAYNE-7 Assessment Tool: BLAYNE-7 Assessment 79015 ([id number]) Assessment & Plan Assessment & Plan (1) Insomnia: Code(s): G47.00 - Insomnia, unspecified Category: Medical Qualifiers: Insomnia type: unspecified Qualified Code(s): G47.00 - Insomnia, unspecified Plan: Sleep hygiene reinforced Will start patient back on Doxepin 25 mg Q HS PRN (2) Attention deficit hyperactivity disorder (ADHD): Code(s): F90.9 - Attention-deficit hyperactivity disorder, unspecified type Category: Medical Qualifiers: Attention deficit-hyperactivity disorder type: unspecified Qualified Code(s): F90.9 - Attention-deficit hyperactivity disorder, unspecified type Plan: Will refer him again to psychiatry for further evaluation and management Spoke to behavioral human resources project coordinator here in the office and have requested him to look into why patient is reportedly not being contacted by psychiatry regarding his referrals over the past couple of years (3) Anxiety: Code(s): F41.9 - Anxiety disorder, unspecified Category: Medical Plan: Will start him back on Citalopram 10 mg QD and Doxepin 25 mg Q HS Will refer him again to psychiatry for further evaluation and management - will try referring [place] [facility] [place] [facility] for now until he can be seen by psychiatry formally (4) Morbid obesity with BMI of 45.0-49.9, adult: Code(s): E66.01 - Morbid (severe) obesity due to excess calories; Z68.42 - Body mass index [BMI] 45.0-49.9, adult Category: Medical Plan: Reinforced diet/exercise as tolerated/lose weight Plan Per request, flu vaccine given to patient today As he has not been back in a while and have no recent labs done, will send him for some labs ALEX Follow up in 3 months Orders: Orders Influenza [id number] Immunization 04/30/24 Z23 - Encounter for immunization Complete Blood Count Auto Diff 04/30/24 D64.9 - Anemia, unspecified Comprehensive [place]. Panel Fast 04/30/24 E78.00 - Pure hypercholesterolemia, unspecified TSH reflex Free T4 04/30/24 E78.00 - Pure hypercholesterolemia, unspecified Lipid Panel 04/30/24 E78.00 - Pure hypercholesterolemia, unspecified UA CC w/rflx Micro + Cult 04/30/24 R30.0 - Dysuria Vitamin D 25-OH Total 04/30/24 E55.9 - Vitamin D deficiency, unspecified Hemoglobin A1c 04/30/24 R73.9 - Hyperglycemia, unspecified Referrals Psychiatry Referral F41.9 - Anxiety disorder, unspecified, F90.9 - Attention- deficit hyperactivity disorder, unspecified type Psychiatry Outpatient Consultation Service F41.9 - Anxiety disorder, unspecified, F90.9 - Attention-deficit hyperactivity disorder, unspecified type Medications: New citalopram 10 mg PO DAILY 30 days 30 tabs 3RF doxepin 25 mg PO BEDTIME 30 days 30 caps 3RF
== END 2024-04-30 16:11 | disposition home or self-care (01) ==
PROVIDERS: PCP Internal Medicine; Visit Provider Internal Medicine
DX: G47.00 Insomnia, unspecified (principal); E66.813 Obesity, class 3; Z68.42 Body mass index [BMI] 45.0-49.9, adult; F90.9 Attention-deficit hyperactivity disorder, unspecified type; F41.9 Anxiety disorder, unspecified; Z23 Encounter for immunization

== ENCOUNTER → 2024-04-30 15:19 | Outpatient (BNVA) | payer OTHER, SELFPAY | PROVIDERS: PCP Internal Medicine; Visit Provider Internal Medicine | DX: Z23 Encounter for immunization (principal); D64.9 Anemia, unspecified; E78.00 Pure hypercholesterolemia, unspecified; R30.0 Dysuria; R73.9 Hyperglycemia, unspecified; E55.9 Vitamin D deficiency, unspecified | CPT/HCPCS: 90471; 90656; 96127; 99212 ==

== ENCOUNTER 2024-08-25 13:21 | Outpatient (AMB) | payer OTHER, SELFPAY ==
--- NOTE | 2024-08-25 14:02 | A.OFFPC_ITS ---
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 Required: No Accompanied by: Self / Same As Patient Allergies No Known Allergies Allergy (Verified 09/01/24 05:32) Medication List - Last Reconciled 09/01/24 by Rah Thompson MD citalopram 10 mg PO DAILY 30 days doxepin 25 mg PO BEDTIME 30 days Tobacco use date assessed: 08/25/24 Dental Screening Dental Screen Date: 08/25/24 Did you have a dental visit in the last 12 months?: No Did you have a dental problem in the last 6 months where you did not have access to dental care?: No Was dental information given to patient?: No HPI 3 Months f/u HPI Details Patient comes in today for his follow-up visit States that he feels okay He denies any headaches or dizziness Denies any chest pains, no shortness of breath No nausea/vomiting, no abdominal pain No change in bowel habits noted States that he has been doing well on his current Rx for his mood disorder; has not seen psychiatry in a while now He was not able to get any of his previously ordered labs done over the past couple of years [facility] Medical History Folliculitis Myocarditis Morbid obesity with BMI of 45.0-49.9, adult Anxiety Attention deficit hyperactivity disorder (ADHD) Surgical History No pertinent past surgical history Family History Father Diabetes mellitus Mother Diabetes mellitus Other Mental health disorder Social History Housing: House Alcohol intake: never Patient Tobacco Use Status: Never used Tobacco e-Cigarette/Vaping Use: Never Used Second Hand Smoke Exposure: No service: No Current occupational status: disabled Cognitive needs: No Hearing needs: No Vision needs: Yes (glasses) Questionnaire PHQ-9 Over the last 2 weeks, how often have you been bothered by any of the following problems? 1. Little interest or pleasure in doing things: not at all 2. Feeling down, depressed, or hopeless: several days 3. Trouble falling or staying asleep, or sleeping too much: not at all 4. Feeling tired or having little energy: not at all 5. Poor appetite or overeating: not at all 6. Feeling bad about yourself - or that you are a failure or have let yourself or your family down: not at all 7. Trouble concentrating on things, such as reading the newspaper or watching television: not at all 8. Moving or speaking so slowly that other people could have noticed. Or the opposite - being so fidgety or restless that you have been moving around a lot more than usual: not at all 9. Thoughts that you would be better off or of hurting yourself in some way: not at all Total score: 1 Depression Screening Interpretation: Positive Depression Screening Follow-up: Existing condition and New Medication prescribed (started back on his previous Rx) Depression Screening Done: Yes 59996 - PHQ-9 Billing: Yes Source: Developed by Drs. Pj Mesa, Bertha Robin, Joselo Galindo and colleagues, with an educational morteza from [employer]. Thrive Questionnaire Date Thrive assessed: 08/25/24 I am a: Patient What is your living situation today?: I have a steady place to live Within the past 12 months, did the food you bought not last and you didn't have the money to get more?: Never true Within the past 12 months, did you worry whether your food would run out before you got money to buy more?: Never true Do you have trouble paying for medicines?: No Do you have trouble getting transportation to medical appointments?: No Do you have trouble paying your heating and electricity bill?: No Do you have trouble taking care of your child, family member or friend?: No Do you have trouble with day-to-day activities such as bathing, preparing meals, shopping, managing finances, etc.?: No Are you currently unemployed and looking for a job?: I choose not to answer this question Are you interested in more education?: No Please select the resources that you would like help with: None Currently or been in a relationship where the following occur: No concerns reported THRIVE Score: 0 AUDIT C Alcohol Use Questionnaire (AUDIT-C) 1. How often do you have a drink containing alcohol?: Never 3. How often do you have six or more drinks on one occasion?: Never Total Score: 0 Score Reviewed/Action Taken: Yes BLAYNE-7 AMB Questionnaire BLAYNE-7 Date BLAYNE - 7 assessed: 08/25/24 Feeling nervous, anxious, or on edge: 3 = Nearly every day Not being able to stop or control worryin = Nearly every day Worrying too much about different things: 3 = Nearly every day Trouble relaxin = Several days Being so restless that it is hard to sit still: 3 = Nearly every day Becoming easily annoyed or irritable: 1 = Several days Feeling afraid as if something awful might happen: 0 = Not at all Total BLAYNE-7 score (0-4 normal; 5-9 mild; 10-14 moderate; 15-21 severe): 14 Source: Developed by Drs. Pj Mesa, Bertha Robin, Joselo Galindo and colleagues, with an educational morteza from [employer]. BLAYNE-7 Assessment Billing BLAYNE-7 Assessment Tool: BLAYNE-7 Assessment 48593 Review of Systems Const Denies chills, Reports difficulty sleeping, Denies fatigue, Denies fever(s) and Denies headache(s) ENT Denies dysphagia, Denies dizziness, Denies otalgia, Denies headache(s), Denies neck pain, Denies odynophagia and Denies sore throat Card Denies chest pain, Denies palpitations and Denies dyspnea Resp Denies cough and Denies dyspnea GI Denies abdominal pain, Denies constipation, Denies dysphagia, Denies heartburn, Denies diarrhea, Denies nausea, Denies odynophagia and Denies vomiting Denies dysuria, Denies nocturia and Denies urinary frequency Musc Denies back pain and Denies neck pain Skin/Breast Denies rash Neuro Denies dizziness and Denies headache(s) Psych Reports anxiety and Denies depression Endo Denies fatigue and Denies palpitations Physical exam (Primary Care) Vital Signs: Last Vital Signs Pulse 87 08/25/24 14:03 BP 122/86 08/25/24 14:03 Pulse Ox 98 08/25/24 14:03 Oxygen Delivery Method Room Air 08/25/24 14:03 BMI result Body Mass Index 47.1 Tobacco/Smoking Status: Tobacco use Status Tobacco use date assessed 08/25/24 08/25/24 14:11 Patient Tobacco Use Status Never used Tobacco 08/25/24 14:11 e-Cigarette/Vaping Use Never Used 08/25/24 14:11 PHQ-9: PHQ-9 Score PHQ-9: Total score 1 08/25/24 14:34 Depression Screening Interpretation: Positive Depression Screening Follow-up: Existing condition and New Medication prescribed (started back on his previous Rx) Thrive Assessment: Date of Thrive Assessment Date Thrive assessed 08/25/24 08/25/24 14:11 Currently or been in a relationship where the following occur: No concerns reported Const General: no acute distress and alert HENMT Ears: TM's normal bilaterally and EAC's normal Throat: Yes posterior oropharynx normal and Yes tonsils normal (no TP congestion) Neck Neck: Yes supple and No lymphadenopathy Thyroid: Thyroid normal Resp Auscultation: clear to auscultation bilaterally, no rales and no wheezes Cardio Rate: regular rate Rhythm: regular rhythm Heart sounds: no murmurs GI Palpation (GI): Soft to palpation and nontender Auscultation: normal bowel sounds General: Yes no CVA tenderness Back/Spine/Pelvis Back: no CVA tenderness Thoracic/Lumbar Spine: thoracic and lumbar spine normal to inspection Skin Rashes: no rashes Extrem General: Yes no clubbing, cyanosis or edema Coding Level of Care Code Est Pt Level 3 (80436) Diagnoses Insomnia, unspecified type G47.00 Insomnia type: unspecified Attention deficit hyperactivity disorder (ADHD), unspecified ADHD type F90.9 Attention deficit-hyperactivity disorder type: unspecified Anxiety F41.9 Morbid obesity with BMI of 45.0-49.9, adult E66.01; Z68.42 Additional Codes BLAYNE-7 Assessment Billing - BLAYNE-7 Assessment Tool: BLAYNE-7 Assessment 51309 ([id number]) PHQ-9 - 25751 - PHQ-9 Billing: Yes ([id number]) Assessment & Plan Assessment & Plan (1) Insomnia: Code(s): G47.00 - Insomnia, unspecified Category: Medical Qualifiers: Insomnia type: unspecified Qualified Code(s): G47.00 - Insomnia, unspecified Plan: Sleep hygiene reinforced Continue Doxepin 25 mg Q HS PRN (2) Attention deficit hyperactivity disorder (ADHD): Code(s): F90.9 - Attention-deficit hyperactivity disorder, unspecified type Category: Medical Qualifiers: Attention deficit-hyperactivity disorder type: unspecified Qualified Code(s): F90.9 - Attention-deficit hyperactivity disorder, unspecified type Plan: Will refer him again to psychiatry for further evaluation and management Spoke again to behavioral religious education coordinator here in the office and have requested him to look into why patient is reportedly not being contacted by psychiatry regarding his referrals over the past couple of years (3) Anxiety: Code(s): F41.9 - Anxiety disorder, unspecified Category: Medical Plan: Continue Citalopram 10 mg QD and Doxepin 25 mg Q HS Will refer him again to psychiatry for further evaluation and management (4) Morbid obesity with BMI of 45.0-49.9, adult: Code(s): E66.01 - Morbid (severe) obesity due to excess calories; Z68.42 - Body mass index [BMI] 45.0-49.9, adult Category: Medical Plan: Reinforced diet/exercise as tolerated/lose weight Plan To return in 3 months for his next annual physical examination He is instructed to get his previously ordered labs (updated) done about a week before his upcoming appt in October 2024 Orders: Referrals Psychiatry Referral F41.9 - Anxiety disorder, unspecified, F90.9 - Attention- deficit hyperactivity disorder, unspecified type
[2024-08-25 14:03] VITALS: BP 122/86; PULSE 87; O2SAT 98; BMI 47.1
== END 2024-08-25 14:37 | disposition home or self-care (01) ==
PROVIDERS: PCP Internal Medicine; Visit Provider Internal Medicine
DX: G47.00 Insomnia, unspecified (principal); F90.9 Attention-deficit hyperactivity disorder, unspecified type; E66.01 Morbid (severe) obesity due to excess calories; Z68.42 Body mass index [BMI] 45.0-49.9, adult; F41.9 Anxiety disorder, unspecified

== ENCOUNTER → 2024-08-25 13:21 | Outpatient (BNVA) | payer OTHER, SELFPAY | PROVIDERS: PCP Internal Medicine; Visit Provider Internal Medicine | DX: G47.00 Insomnia, unspecified (principal); F90.9 Attention-deficit hyperactivity disorder, unspecified type; F41.9 Anxiety disorder, unspecified; E66.01 Morbid (severe) obesity due to excess calories; Z68.42 Body mass index [BMI] 45.0-49.9, adult; Z71.3 Dietary counseling and surveillance | CPT/HCPCS: 96127; 99212 ==

== ENCOUNTER 2024-11-20 10:13 | Outpatient (REF) | payer OTHER, SELFPAY ==
[2024-11-20 13:08] LABS: MANUAL DIFF FLAG NO
[2024-11-20 13:16] LABS: Appearance Urine Clear; Color Urine Yellow; Glucose Urine UA Negative (Negative); Leukocyte Esterase Urine Negative (Negative); Nitrite Urine Negative (Negative); PH 5.5 (5.0-9.0); Urine Blood Negative (Negative); Urine Ketones Negative (Negative); Urine Protein Negative (Neg-Trace)
[2024-11-20 13:18] LABS: Basophils Percent Auto 0.4 % (0-2); Eosinophils Absolute Auto 0.3 X10*3/uL (0.0-0.4); Eosinophils Percent Auto 2.9 % (0-4); Hematocrit 44.7 % (42.0-52.0); Hemoglobin 14.3 g/dl (14.0-18.0); Imm Gran Abs Auto 0.05 X10*3/uL (0.00-0.03); Imm Gran Pct Auto 0.5 % (0.0-0.4); Lymphocytes Absolute Auto 3.9 X10*3/uL (1.2-4.9); Lymphocytes Percent Auto 38.8 % (20-40); Mean Corpuscular Volume 84.3 fL (80.0-98.0); Mean Platelet Volume 10.2 fL (9.4-12.4); Monocytes Absolute Auto 0.8 X10*3/uL (0.1-1.2); Monocytes Percent Auto 7.9 % (2-11); Neutrophils Percent Auto 49.5 % (45-73); Platelet Count 334 X10*3/uL (160-400); Red Cell Distribution Width 13.2 % (11.0-16.0)
[2024-11-20 13:22] LABS: Estimated Average Glucose 117 mg/dL; Hemoglobin A1C 148.7302 umol/L; Hemoglobin A1c % 5.7 % (<6.0); Total Hemoglobin (HGBA1C) 3859.7056 umol/L
[2024-11-20 13:43] LABS: Alanine Aminotransferase 32 U/L (0-40); Albumin Level 3.5 g/dL (3.5-5.0); Alkaline Phosphatase 83 U/L (39-117); Anion Gap 9 (12-20); Aspartate Amino Transferase 36 U/L (5-37); Bilirubin Total 0.6 mg/dL (0.0-1.0); Blood Urea Nitrogen 9 mg/dL (9-16); Calcium 8.7 mg/dL (8.4-10.2); Carbon Dioxide 30 mmol/L (22-29); Chloride 104 mmol/L (96-108); Cholesterol 142 mg/dL (<200); Estimated Glomerular Filt Rate > 60; Glucose Fasting 85 mg/dL (60-99); HDL Cholesterol 49 mg/dL (>40); LDL Cholesterol Calculated 78 mg/dL (<100); Potassium 3.8 mmol/L (3.3-5.1); Sodium 139 mmol/L (135-145); Total Protein 6.9 g/dL (6.5-8.0); Triglycerides 75 mg/dL (<150)
[2024-11-20 13:49] LABS: TSH reflex Free T4 2.78 uIU/mL (0.32-4.0); Vitamin D 25-OH Total 22.3 ng/mL (>30)
== END 2024-11-20 10:14 | disposition home or self-care (01) ==
LOC: HO.HMGCLDS 10:13
PROVIDERS: PCP Internal Medicine; Visit Provider Internal Medicine
DX: E78.00 Pure hypercholesterolemia, unspecified (principal); R30.0 Dysuria; E55.9 Vitamin D deficiency, unspecified; R73.9 Hyperglycemia, unspecified; D64.9 Anemia, unspecified
CPT/HCPCS: 36415; 80053; 80061; 81003; 82306; 83036; 84443; 85025

== ENCOUNTER 2024-11-24 13:32 | Outpatient (AMB) | payer OTHER, SELFPAY ==
[2024-11-24 14:05] VITALS: BP 118/76; PULSE 91; O2SAT 97; BMI 47.7
--- NOTE | 2024-11-24 14:05 | MHC.PC.OV ---
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 Accompanied by: Self / Same As Patient Allergies No Known Allergies Allergy (Verified 11/24/24 14:33) Medication List - Last Reconciled 11/24/24 by Rah Thompson MD citalopram 10 mg PO DAILY 30 days doxepin 25 mg PO BEDTIME 30 days Tobacco use date assessed: 11/24/24 Dental Screening Dental Screen Date: 11/24/24 Did you have a dental visit in the last 12 months?: No Did you have a dental problem in the last 6 months where you did not have access to dental care?: No Was dental information given to patient?: No HPI Annual Exam HPI Details Patient comes in today for his annual physical examination States that he currently feels okay He denies any headaches or dizziness Denies any chest pains, no SOB although he recalls an episode a couple of weeks ago where he was experiencing some burning sensation in his chest that started when he was lying down in bed at night States that his symptoms lasted for about 15 minutes and finally subsided after he went and got some water to drink He did not experience any increased SOB at the time when he was experiencing the mild burning sensation in his chest and the symptoms have not recurred since No nausea/vomiting, no abdominal pain No change in bowel habits noted He denies any acute urinary symptoms He had his follow up labs done a few days ago - to discuss his results [facility] Medical History Vitamin D deficiency Folliculitis Myocarditis Morbid obesity with BMI of 45.0-49.9, adult Anxiety Attention deficit hyperactivity disorder (ADHD) Surgical History No pertinent past surgical history Family History Father Diabetes mellitus Mother Diabetes mellitus Other Mental health disorder Social History Housing: House Alcohol intake: never Patient Tobacco Use Status: Never used Tobacco e-Cigarette/Vaping Use: Never Used Second Hand Smoke Exposure: No service: No Current occupational status: disabled Cognitive needs: No Hearing needs: No Vision needs: Yes (glasses) Questionnaire PHQ-9 Over the last 2 weeks, how often have you been bothered by any of the following problems? 1. Little interest or pleasure in doing things: not at all 2. Feeling down, depressed, or hopeless: several days 3. Trouble falling or staying asleep, or sleeping too much: more than half the days 4. Feeling tired or having little energy: more than half the days 5. Poor appetite or overeating: not at all 6. Feeling bad about yourself - or that you are a failure or have let yourself or your family down: not at all 7. Trouble concentrating on things, such as reading the newspaper or watching television: not at all 8. Moving or speaking so slowly that other people could have noticed. Or the opposite - being so fidgety or restless that you have been moving around a lot more than usual: not at all 9. Thoughts that you would be better off or of hurting yourself in some way: not at all Total score: 5 Depression Screening Interpretation: Positive Depression Screening Follow-up: Existing condition and In treatment Depression Screening Done: Yes 51227 - PHQ-9 Billing: Yes Source: Developed by Drs. Pj Mesa, Bertha Robin, Joselo Galindo and colleagues, with an educational morteza from [employer]. Thrive Questionnaire Date Thrive assessed: 11/24/24 I am a: Patient What is your living situation today?: I have a steady place to live Within the past 12 months, did the food you bought not last and you didn't have the money to get more?: I choose not to answer this question Within the past 12 months, did you worry whether your food would run out before you got money to buy more?: I choose not to answer this question Do you have trouble paying for medicines?: I choose not to answer this question Do you have trouble getting transportation to medical appointments?: No Do you have trouble paying your heating and electricity bill?: I choose not to answer this question Do you have trouble taking care of your child, family member or friend?: No Do you have trouble with day-to-day activities such as bathing, preparing meals, shopping, managing finances, etc.?: No Are you currently unemployed and looking for a job?: I choose not to answer this question Are you interested in more education?: I choose not to answer this question Please select the resources that you would like help with: None Currently or been in a relationship where the following occur: I choose not to answer THRIVE Score: 0 AUDIT C Alcohol Use Questionnaire (AUDIT-C) 1. How often do you have a drink containing alcohol?: Never 3. How often do you have six or more drinks on one occasion?: Never Total Score: 0 Score Reviewed/Action Taken: Yes BLAYNE-7 AMB Questionnaire BLAYNE-7 Date BLAYNE - 7 assessed: 11/24/24 Feeling nervous, anxious, or on edge: 1 = Several days Not being able to stop or control worryin = Several days Worrying too much about different things: 1 = Several days Trouble relaxin = Not at all Being so restless that it is hard to sit still: 1 = Several days Becoming easily annoyed or irritable: 0 = Not at all Feeling afraid as if something awful might happen: 1 = Several days Total BLAYNE-7 score (0-4 normal; 5-9 mild; 10-14 moderate; 15-21 severe): 5 Source: Developed by Drs. Pj Mesa, Bertha Robin, Joselo Galindo and colleagues, with an educational morteza from [employer]. Review of Systems Const Denies chills, Denies fatigue, Denies fever(s), Denies headache(s), Denies malaise and Denies weakness Eyes Denies blurry vision, Denies change in vision, Denies irritation and Denies itchy eyes ENT Denies dysphagia, Denies dizziness, Denies otalgia, Denies headache(s), Denies nasal congestion, Denies neck pain, Denies odynophagia and Denies sore throat Card Denies chest pain, Denies rapid heart rate, Denies irregular heart rhythm, Denies palpitations and Denies dyspnea Resp Denies chest congestion, Denies cough, Denies dyspnea and Denies wheezing GI Details: (+) mild burning in his chest - see HPI Denies abdominal pain, Denies bloating, Denies constipation, Denies dysphagia, Denies heartburn, Denies diarrhea, Denies nausea, Denies odynophagia and Denies vomiting Denies hematuria, Denies difficulty urinating, Denies dysuria, Denies urinary frequency and Denies urinary urgency Musc Denies back pain, Denies arthralgias, Denies joint swelling, Denies muscle weakness and Denies neck pain Skin/Breast Denies change in pigmentation, Denies lesions, Denies rash and Denies unusual bruising Neuro Denies dizziness, Denies headache(s), Denies paresthesias and Denies weakness Endo Denies fatigue and Denies palpitations Aller/Immun Denies itchy eyes and Denies wheezing Physical exam (Primary Care) Vital Signs: Last Vital Signs Pulse 91 11/24/24 14:05 BP 118/76 11/24/24 14:05 Pulse Ox 97 11/24/24 14:05 Oxygen Delivery Method Room Air 11/24/24 14:05 BMI result Body Mass Index 47.7 Tobacco/Smoking Status: Tobacco use Status Tobacco use date assessed 11/24/24 11/24/24 14:10 Patient Tobacco Use Status Never used Tobacco 11/24/24 14:10 e-Cigarette/Vaping Use Never Used 11/24/24 14:10 PHQ-9: PHQ-9 Score PHQ-9: Total score 5 11/24/24 14:37 Depression Screening Interpretation: Positive Depression Screening Follow-up: Existing condition and In treatment Thrive Assessment: Date of Thrive Assessment Date Thrive assessed 11/24/24 11/24/24 14:10 Currently or been in a relationship where the following occur: I choose not to answer Const General: no acute distress, alert and awake Orientation/consciousness: patient oriented x3 HENMT Head: Yes normocephalic and Yes atraumatic Ears: external ears normal, TM's normal bilaterally and EAC's normal General nose exam: No nasal discharge present Face and sinus: Yes normal facial exam and Yes sinuses nontender Teeth and gingiva: dentition normal Throat: Yes posterior oropharynx normal and Yes tonsils normal (no TP congestion) Eyes Eyelids: Yes eyelids normal Conjunctivae: conjunctivae normal Pupils: Equal, round and reactive pupils present EOM: EOMs intact bilaterally Neck Neck: Yes no lymphadenopathy and Yes supple Thyroid: Thyroid normal Resp Auscultation: clear to auscultation bilaterally, no rales and no wheezes Cardio Rate: regular rate Rhythm: regular rhythm Heart sounds: no murmurs GI Palpation (GI): Soft to palpation, nontender and No hepatosplenomegaly present Auscultation: normal bowel sounds General: Yes no CVA tenderness Back/Spine/Pelvis Back: no CVA tenderness Thoracic/Lumbar Spine: thoracic and lumbar spine normal to inspection Skin Lesions: no lesions Rashes: no rashes Neuro General: patient oriented x3, moves all extremities, no focal motor deficits and CN's II-XI intact bilaterally Cranial nerves: Yes Equal, round and reactive pupils present Cognition (Neuro): normal cognition Gait exam (Neuro): Normal gait present Extrem General: Yes no clubbing, cyanosis or edema Results Reviewed Results Reviewed: Laboratory Tests 11/20/24 10:19 WBC 10.0 Hgb 14.3 Hct 44.7 Plt Count 334 D Sodium 139 Potassium 3.8 Creatinine 0.77 Estimated GFR > 60 Fasting Glucose 85 Hemoglobin A1c % 5.7 Calcium 8.7 AST 36 ALT 32 Triglycerides 75 Cholesterol 142 LDL Cholesterol, Calc 78 HDL Cholesterol 49 25-OH Vitamin D Total 22.3 L TSH 2.78 Ur Specific [place] 1.020 Urine Protein Negative Urine Glucose (UA) Negative Urine Blood Negative Urine Nitrite Negative Ur Leukocyte Esterase Negative Coding Level of Care Code Est Pt Prev Care 18-39y(07543) Diagnoses Annual physical exam Z00.00 Vitamin D deficiency E55.9 Insomnia, unspecified type G47.00 Insomnia type: unspecified Attention deficit hyperactivity disorder (ADHD), unspecified ADHD type F90.9 Attention deficit-hyperactivity disorder type: unspecified Anxiety F41.9 Morbid obesity with BMI of 45.0-49.9, adult E66.01; Z68.42 Additional Codes PHQ-9 - 93790 - PHQ-9 Billing: Yes ([id number]) Assessment & Plan Assessment & Plan (1) Annual physical exam: Code(s): Z00.00 - Encounter for general adult medical examination without abnormal findings Category: Medical Plan: Results of his labs done a few days ago reviewed and discussed with patient (2) Vitamin D deficiency: Code(s): E55.9 - Vitamin D deficiency, unspecified Category: Medical Plan: Patient is advised that his Vitamin D level was low on his recent labs Will have him start taking OTC Vitamin D3 2000 units QD (3) Insomnia: Code(s): G47.00 - Insomnia, unspecified Category: Medical Qualifiers: Insomnia type: unspecified Qualified Code(s): G47.00 - Insomnia, unspecified Plan: Sleep hygiene reinforced Continue Doxepin 25 mg Q HS PRN (4) Attention deficit hyperactivity disorder (ADHD): Code(s): F90.9 - Attention-deficit hyperactivity disorder, unspecified type Category: Medical Qualifiers: Attention deficit-hyperactivity disorder type: unspecified Qualified Code(s): F90.9 - Attention-deficit hyperactivity disorder, unspecified type Plan: Follow up with psychiatry as scheduled (5) Anxiety: Code(s): F41.9 - Anxiety disorder, unspecified Category: Medical Plan: Continue Citalopram 10 mg QD and Doxepin 25 mg Q HS Patient admits that he sometimes forgets to take his medication(s) and he can tell the difference when he missed taking his Rx Follow up with psychiatry as scheduled (6) Morbid obesity with BMI of 45.0-49.9, adult: Code(s): E66.01 - Morbid (severe) obesity due to excess calories; Z68.42 - Body mass index [BMI] 45.0-49.9, adult Category: Medical Plan: Reinforced diet/exercise as tolerated/lose weight Plan Follow up in 6 months Medications: New cholecalciferol (vitamin D3) 50 mcg PO DAILY 90 days 90 caps 3RF E55.9 - Vitamin D deficiency, unspecified
== END 2024-11-24 14:40 | disposition home or self-care (01) ==
LOC: HO.HMCH 13:33
PROVIDERS: PCP Internal Medicine; Visit Provider Internal Medicine
DX: Z00.00 Encounter for general adult medical examination without abnormal findings (principal); E55.9 Vitamin D deficiency, unspecified; E66.01 Morbid (severe) obesity due to excess calories; Z68.42 Body mass index [BMI] 45.0-49.9, adult; G47.00 Insomnia, unspecified; F90.9 Attention-deficit hyperactivity disorder, unspecified type; F41.9 Anxiety disorder, unspecified

== ENCOUNTER → 2024-11-24 13:32 | Outpatient (BNVA) | payer OTHER, SELFPAY | PROVIDERS: PCP Internal Medicine; Visit Provider Internal Medicine | DX: Z00.00 Encounter for general adult medical examination without abnormal findings (principal); E55.9 Vitamin D deficiency, unspecified; G47.00 Insomnia, unspecified; F90.9 Attention-deficit hyperactivity disorder, unspecified type; F41.9 Anxiety disorder, unspecified; E66.01 Morbid (severe) obesity due to excess calories; Z68.42 Body mass index [BMI] 45.0-49.9, adult; Z79.899 Other long term (current) drug therapy | CPT/HCPCS: 96127 ==

== ENCOUNTER 2025-05-15 14:45 | Outpatient (AMB) | payer OTHER, SELFPAY ==
[2025-05-15 14:46] VITALS: BP 120/92; PULSE 94; O2SAT 96; BMI 49.5
--- NOTE | 2025-05-15 14:46 | MHC.PC.OV ---
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: No Accompanied by: Self / Same As Patient Allergies No Known Allergies Allergy (Verified 05/15/25 15:25) Medication List - Last Reconciled 05/15/25 by Rah Thompson MD cholecalciferol (vitamin D3) 50 mcg PO DAILY 90 days citalopram 10 mg PO DAILY 30 days doxepin 25 mg PO BEDTIME 30 days Tobacco use date assessed: 05/15/25 Dental Screening Dental Screen Date: 05/15/25 Did you have a dental visit in the last 12 months?: No Did you have a dental problem in the last 6 months where you did not have access to dental care?: No Was dental information given to patient?: Patient has dentist HPI 6 month f/u HPI Details Patient comes in today for his follow-up visit States that he feels okay He denies any headaches or dizziness Denies any chest pains, no shortness of breath No nausea/vomiting, no abdominal pain No change bowel habits noted Patient is aware that he has gained a lot of weight since his last visit and would like to know if he can be started on one of the GLP-1s to help him lose weight PFSH Medical History Vitamin D deficiency Folliculitis Myocarditis Morbid obesity with BMI of 45.0-49.9, adult Anxiety Attention deficit hyperactivity disorder (ADHD) Surgical History No pertinent past surgical history Family History Father Diabetes mellitus Mother Diabetes mellitus Other Mental health disorder Social History Housing: House Alcohol intake: never Patient Tobacco Use Status: Never used Tobacco e-Cigarette/Vaping Use: Never Used Second Hand Smoke Exposure: No service: No Current occupational status: disabled Cognitive needs: No Hearing needs: No Vision needs: Yes (glasses) Questionnaire PHQ-9 Over the last 2 weeks, how often have you been bothered by any of the following problems? 1. Little interest or pleasure in doing things: not at all 2. Feeling down, depressed, or hopeless: several days 3. Trouble falling or staying asleep, or sleeping too much: more than half the days 4. Feeling tired or having little energy: more than half the days 5. Poor appetite or overeating: not at all 6. Feeling bad about yourself - or that you are a failure or have let yourself or your family down: not at all 7. Trouble concentrating on things, such as reading the newspaper or watching television: not at all 8. Moving or speaking so slowly that other people could have noticed. Or the opposite - being so fidgety or restless that you have been moving around a lot more than usual: not at all 9. Thoughts that you would be better off or of hurting yourself in some way: not at all Total score: 5 Depression Screening Interpretation: Positive Depression Screening Follow-up: Existing condition and In treatment Depression Screening Done: Yes 12770 - PHQ-9 Billing: Yes Source: Developed by Drs. Pj Mesa, Bertha Robin, Joselo Galindo and colleagues, with an educational morteza from [employer]. Thrive Questionnaire Date Thrive assessed: 11/24/24 AUDIT C Alcohol Use Questionnaire (AUDIT-C) 1. How often do you have a drink containing alcohol?: Never 3. How often do you have six or more drinks on one occasion?: Never Total Score: 0 Score Reviewed/Action Taken: Yes BLAYNE-7 AMB Questionnaire BLAYNE-7 Date BLAYNE - 7 assessed: 11/24/24 Source: Developed by Drs. Pj Mesa, Joselo Nagy and colleagues, with an educational morteza from [employer]. Review of Systems Const Denies chills, Denies fatigue, Denies fever(s) and Denies headache(s) ENT Denies dysphagia, Denies dizziness, Denies otalgia, Denies headache(s), Denies neck pain, Denies odynophagia and Denies sore throat Card Denies chest pain, Denies palpitations and Denies dyspnea Resp Denies chest congestion, Denies cough and Denies dyspnea GI Denies abdominal pain, Denies constipation, Denies dysphagia, Denies heartburn, Denies diarrhea, Denies nausea, Denies odynophagia and Denies vomiting Denies difficulty urinating, Denies dysuria, Denies nocturia and Denies urinary frequency Musc Denies back pain and Denies neck pain Skin/Breast Denies rash Neuro Denies dizziness and Denies headache(s) Psych Reports depression (controlled on Rx) Endo Denies fatigue and Denies palpitations Physical exam (Primary Care) Vital Signs: Last Vital Signs Pulse 94 05/15/25 14:46 BP 120/92 H 05/15/25 14:46 Pulse Ox 96 05/15/25 14:46 Oxygen Delivery Method Room Air 05/15/25 14:46 BMI result Body Mass Index 49.5 Tobacco/Smoking Status: Tobacco use Status Tobacco use date assessed 05/15/25 05/15/25 14:47 Patient Tobacco Use Status Never used Tobacco 05/15/25 14:47 e-Cigarette/Vaping Use Never Used 05/15/25 14:47 PHQ-9: PHQ-9 Score PHQ-9: Total score 5 05/15/25 15:32 Depression Screening Interpretation: Positive Depression Screening Follow-up: Existing condition and In treatment Thrive Assessment: Date of Thrive Assessment Date Thrive assessed 11/24/24 05/15/25 14:47 Const General: no acute distress and alert HENMT Ears: TM's normal bilaterally and EAC's normal Throat: Yes posterior oropharynx normal and Yes tonsils normal (no TP congestion) Neck Neck: Yes supple and No lymphadenopathy Thyroid: Thyroid normal Resp Auscultation: clear to auscultation bilaterally, no rales and no wheezes Cardio Rate: regular rate Rhythm: regular rhythm Heart sounds: no murmurs GI Palpation (GI): Soft to palpation and nontender Auscultation: normal bowel sounds Skin General skin exam: no rashes or lesions noted Extrem General: Yes no clubbing, cyanosis or edema Coding Level of Care Code Est Pt Level 4 (91786) Diagnoses Vitamin D deficiency E55.9 Insomnia, unspecified type G47.00 Insomnia type: unspecified Attention deficit hyperactivity disorder (ADHD), unspecified ADHD type F90.9 Attention deficit-hyperactivity disorder type: unspecified Anxiety F41.9 Morbid obesity with BMI of 45.0-49.9, adult E66.01; Z68.42 Additional Codes PHQ-9 - 70170 - PHQ-9 Billing: Yes ([id number]) Assessment & Plan Assessment & Plan (1) Vitamin D deficiency: Code(s): E55.9 - Vitamin D deficiency, unspecified Category: Medical Plan: Continue Vitamin D3 2000 units QD (2) Insomnia: Code(s): G47.00 - Insomnia, unspecified Category: Medical Qualifiers: Insomnia type: unspecified Qualified Code(s): G47.00 - Insomnia, unspecified Plan: Sleep hygiene reinforced Continue Doxepin 25 mg Q HS PRN (3) Attention deficit hyperactivity disorder (ADHD): Code(s): F90.9 - Attention-deficit hyperactivity disorder, unspecified type Category: Medical Qualifiers: Attention deficit-hyperactivity disorder type: unspecified Qualified Code(s): F90.9 - Attention-deficit hyperactivity disorder, unspecified type Plan: Follow up with psychiatry as scheduled (4) Anxiety: Code(s): F41.9 - Anxiety disorder, unspecified Category: Medical Plan: Continue Citalopram 10 mg QD and Doxepin 25 mg Q HS Patient admits that he sometimes forgets to take his medication(s) and he can tell the difference when he missed taking his Rx Follow up with psychiatry as scheduled (5) Morbid obesity with BMI of 45.0-49.9, adult: Code(s): E66.01 - Morbid (severe) obesity due to excess calories; Z68.42 - Body mass index [BMI] 45.0-49.9, adult Category: Medical Plan: Reinforced diet/exercise as tolerated/lose weight Per request will try starting patient on Zepbound 2.5 mg SQ once a week to help him lose some weight but advised patient that his insurance may not necessarily cover the Rx Plan Follow up in 3 months IF he is able to start on Tirzepatide injections Otherwise, will just have him return in 6 months as scheduled for his next annual physical examination Orders: Orders UA CC w/rflx Micro + Cult 11/27/25 R30.0 - Dysuria, Z00.00 - Encounter for general adult medical examination without abnormal findings Complete Blood Count Auto Diff 11/27/25 D64.9 - Anemia, unspecified, Z00.00 - Encounter for general adult medical examination without abnormal findings Comprehensive [place]. Panel Fast 11/27/25 E78.00 - Pure hypercholesterolemia, unspecified, Z00.00 - Encounter for general adult medical examination without abnormal findings Lipid Panel 11/27/25 E78.00 - Pure hypercholesterolemia, unspecified, Z00.00 - Encounter for general adult medical examination without abnormal findings TSH reflex Free T4 11/27/25 E78.00 - Pure hypercholesterolemia, unspecified, Z00.00 - Encounter for general adult medical examination without abnormal findings Vitamin D 25-OH Total 11/27/25 E55.9 - Vitamin D deficiency, unspecified, Z00.00 - Encounter for general adult medical examination without abnormal findings Medications: New tirzepatide (weight loss) (Zepbound) for 4 weeks 2.5 mg (0.5 mL) subcut QWEEK 2 mL 0RF 4 weeks E66.01 - Morbid (severe) obesity due to excess calories, Z68.42 - Body mass index [BMI] 45.0-49.9, adult
== END 2025-05-15 15:34 | disposition home or self-care (01) ==
LOC: HO.HMCH 14:45
PROVIDERS: PCP Internal Medicine; Visit Provider Internal Medicine
DX: E55.9 Vitamin D deficiency, unspecified (principal); G47.00 Insomnia, unspecified; F90.9 Attention-deficit hyperactivity disorder, unspecified type; F41.9 Anxiety disorder, unspecified; E66.01 Morbid (severe) obesity due to excess calories; Z68.42 Body mass index [BMI] 45.0-49.9, adult

== ENCOUNTER → 2025-05-15 14:45 | Outpatient (BNVA) | payer OTHER, SELFPAY | PROVIDERS: PCP Internal Medicine; Visit Provider Internal Medicine | DX: E66.01 Morbid (severe) obesity due to excess calories (principal); F41.9 Anxiety disorder, unspecified; E55.9 Vitamin D deficiency, unspecified; G47.00 Insomnia, unspecified; F90.9 Attention-deficit hyperactivity disorder, unspecified type; Z68.42 Body mass index [BMI] 45.0-49.9, adult | CPT/HCPCS: 96127; 99212 ==